=== PATIENT | female | born 1950 | race Two or more races ===

== ENCOUNTER → 2018-01-30 | Outpatient (CLI) | payer OTHER | END | disposition home or self-care (01) | LOC: TOM 08:45 | DX: R31.21 Asymptomatic microscopic hematuria (principal) | CPT/HCPCS: 74178; Q9965 ==

== ENCOUNTER → 2018-02-04 06:42 | Outpatient (CLI) | payer OTHER | END | disposition home or self-care (01) | LOC: LAB 06:42 | DX: C64.1 Malignant neoplasm of right kidney, except renal pelvis (principal); Z51.81 Encounter for therapeutic drug level monitoring; E78.2 Mixed hyperlipidemia; D50.8 Other iron deficiency anemias; E03.8 Other specified hypothyroidism; E13.9 Other specified diabetes mellitus without complications; E56.8 Deficiency of other vitamins; I10 Essential (primary) hypertension ==

== ENCOUNTER 2018-02-05 08:23 | Outpatient (CLI) | payer OTHER | END 2018-02-05 08:31 | disposition home or self-care (01) | LOC: TOM 08:23 | DX: C64.1 Malignant neoplasm of right kidney, except renal pelvis (principal) | CPT/HCPCS: 71270; Q9965 ==

== ENCOUNTER 2018-02-17 08:17 | Outpatient (CLI) | payer OTHER | END 2018-02-17 08:23 | disposition home or self-care (01) | LOC: NUCLEAR 08:17 | DX: C64.1 Malignant neoplasm of right kidney, except renal pelvis (principal) | CPT/HCPCS: 78815; A9552 ==

== ENCOUNTER 2018-02-19 07:20 | Outpatient (CLI) | payer OTHER | END 2018-02-19 18:36 | disposition home or self-care (01) | LOC: LAB 07:20 | DX: Z01.812 Encounter for preprocedural laboratory examination (principal); C64.1 Malignant neoplasm of right kidney, except renal pelvis ==

== ENCOUNTER 2018-02-19 07:37 | Outpatient (CLI) | payer OTHER | END 2018-02-19 19:05 | disposition home or self-care (01) | LOC: EKG 07:37 | DX: Z01.810 Encounter for preprocedural cardiovascular examination (principal); C64.1 Malignant neoplasm of right kidney, except renal pelvis ==

== ENCOUNTER 2018-02-19 09:33 | Outpatient (CLI) | payer OTHER | END 2018-02-19 16:27 | disposition home or self-care (01) | LOC: RAD 09:33 | DX: C64.1 Malignant neoplasm of right kidney, except renal pelvis (principal) ==

== ENCOUNTER 2018-08-22 13:38 | Outpatient (CLI) | payer OTHER | END 2018-08-22 13:49 | disposition home or self-care (01) | LOC: RAD 13:38 | DX: C64.1 Malignant neoplasm of right kidney, except renal pelvis (principal) ==

== ENCOUNTER → 2018-09-03 | Outpatient (CLI) | payer OTHER | END | disposition home or self-care (01) | LOC: TOM 13:51 | DX: R91.8 Other nonspecific abnormal finding of lung field (principal); Z85.528 Personal history of other malignant neoplasm of kidney ==

== ENCOUNTER 2018-12-03 08:10 | Outpatient (CLI) | payer OTHER | END 2018-12-03 08:12 | disposition home or self-care (01) | LOC: MRI 08:10 | DX: C64.1 Malignant neoplasm of right kidney, except renal pelvis (principal) | CPT/HCPCS: 72197; 74183; A9575 ==

== ENCOUNTER 2019-04-07 13:31 | Outpatient (CLI) | payer OTHER | END 2019-04-07 13:34 | disposition home or self-care (01) | LOC: TOM 13:31 | DX: R91.8 Other nonspecific abnormal finding of lung field (principal); Z85.528 Personal history of other malignant neoplasm of kidney ==

== ENCOUNTER 2019-06-02 08:53 | Outpatient (CLI) | payer OTHER | END 2019-06-02 09:05 | disposition home or self-care (01) | LOC: MRI 08:53 | DX: C64.1 Malignant neoplasm of right kidney, except renal pelvis (principal) | CPT/HCPCS: 72197; 74183; A9575 ==

== ENCOUNTER 2020-02-18 08:07 | Outpatient (CLI) | payer OTHER | END 2020-02-18 08:16 | disposition home or self-care (01) | LOC: RAD 08:07 → MRI 08:15 → RAD 08:16 | PROVIDERS: ATTEND Urology | DX: N20.0 Calculus of kidney (principal); C64.1 Malignant neoplasm of right kidney, except renal pelvis | CPT/HCPCS: 72197; 74176; 74183; A9575 ==

== ENCOUNTER 2021-03-07 08:44 | Outpatient (CLI) | payer OTHER | END 2021-03-07 08:51 | disposition home or self-care (01) | LOC: MRI 08:44 | PROVIDERS: ATTEND Urology | DX: C64.1 Malignant neoplasm of right kidney, except renal pelvis (principal) | CPT/HCPCS: 72196; 74182; A9575; 72197; 74183 ==

== ENCOUNTER 2021-03-13 14:41 | Outpatient (CLI) | payer OTHER | END 2021-03-13 14:51 | disposition home or self-care (01) | LOC: TOM 14:41 | PROVIDERS: ATTEND Urology | DX: C64.1 Malignant neoplasm of right kidney, except renal pelvis (principal) ==

== ENCOUNTER 2021-04-25 07:14 | Outpatient (CLI) | payer OTHER | END 2021-04-25 07:15 | disposition home or self-care (01) | LOC: NUCLEAR 07:14 | PROVIDERS: ATTEND Urology | DX: C64.2 Malignant neoplasm of left kidney, except renal pelvis (principal) | CPT/HCPCS: 78816; A9552 ==

== ENCOUNTER → 2021-12-07 | Outpatient (CLI) | payer OTHER | END | disposition home or self-care (01) | LOC: TOM 12-06 08:18 | PROVIDERS: ATTEND Internal Medicine Hematology & Oncology | DX: R22.31 Localized swelling, mass and lump, right upper limb (principal) | CPT/HCPCS: 74177; Q9965 ==

== ENCOUNTER 2022-06-04 09:05 | Outpatient (CLI) | payer OTHER | END 2022-06-04 09:07 | disposition home or self-care (01) | LOC: TOM 09:05 | PROVIDERS: ATTEND Internal Medicine Hematology & Oncology | DX: C64.1 Malignant neoplasm of right kidney, except renal pelvis (principal); C78.01 Secondary malignant neoplasm of right lung; R11.2 Nausea with vomiting, unspecified | CPT/HCPCS: 71260; 74177; Q9965 ==

== ENCOUNTER 2022-09-25 08:08 | Outpatient (CLI) | payer OTHER | END 2022-09-25 08:13 | disposition home or self-care (01) | LOC: TOM 08:08 | PROVIDERS: ATTEND Internal Medicine Hematology & Oncology | DX: C64.1 Malignant neoplasm of right kidney, except renal pelvis (principal); C78.01 Secondary malignant neoplasm of right lung; R11.2 Nausea with vomiting, unspecified | CPT/HCPCS: 71260; 74177; Q9965 ==

== ENCOUNTER 2023-03-18 07:41 | Outpatient (CLI) | payer OTHER | END 2023-03-18 07:49 | disposition home or self-care (01) | LOC: TOM 07:41 | PROVIDERS: ATTEND Internal Medicine Hematology & Oncology | DX: C64.1 Malignant neoplasm of right kidney, except renal pelvis (principal); C78.01 Secondary malignant neoplasm of right lung; R11.2 Nausea with vomiting, unspecified | CPT/HCPCS: 71260; 74177; Q9965 ==

== ENCOUNTER 2024-01-16 12:43 | Emergency (ER) | payer OTHER ==
[~2024-01-16] VITALS: Ht 157.5 cm; Wt 63.5 kg
[2024-01-16] MEDS ORDERED: LEVOTHYROXINE25 MCG PO (13:43)
[2024-01-16] MEDS ORDERED: LIPITOR40 M1 PO (13:44)
[2024-01-16] MEDS ORDERED: DEXAMETHASONE SODIUM PHOSPHATE 4 MG/ML VIAL IM STA (14:58)
[2024-01-16] MEDS ORDERED: ORPHENADRINE CITRATE 30 MG/ML AMPUL IM STA (14:59)
== END 2024-01-16 16:51 | disposition home or self-care (01) ==
LOC: ER 12:44
DX: S09.8XXA Other specified injuries of head, initial encounter (principal); W19.XXXA Unspecified fall, initial encounter; Y93.89 Activity, other specified; Y92.488 Other paved roadways as the place of occurrence of the external cause; Y99.8 Other external cause status; T14.90XA Injury, unspecified, initial encounter
CPT/HCPCS: 70260; 73080; 73502; 96372; 99283; J1100; J2360

== ENCOUNTER 2024-05-29 07:04 | Outpatient (CLI) | payer OTHER ==
[~2024-05-29 07:04] MED LIST: LEVOTHYROXINE25 MCG PO; LIPITOR40 M1 PO
== END 2024-05-29 15:16 | disposition home or self-care (01) ==
LOC: TOM 07:04
PROVIDERS: ATTEND Internal Medicine Hematology & Oncology
DX: C64.1 Malignant neoplasm of right kidney, except renal pelvis (principal); C78.01 Secondary malignant neoplasm of right lung; R11.2 Nausea with vomiting, unspecified
CPT/HCPCS: 74177; Q9965